=== PATIENT | female | born 1965 | race Two or more races ===

== ENCOUNTER 2017-06-29 10:16 | Outpatient (CLI) | payer OTHER | END 2017-06-29 10:28 | disposition home or self-care (01) | LOC: SONOGRAMA 10:16 | DX: N60.11 Diffuse cystic mastopathy of right breast (principal); N60.12 Diffuse cystic mastopathy of left breast; Z12.31 Encounter for screening mammogram for malignant neoplasm of breast ==

== ENCOUNTER 2017-10-05 07:59 | Outpatient (CLI) | payer OTHER | END 2017-10-05 08:10 | disposition home or self-care (01) | LOC: LAB 07:59 | DX: D50.8 Other iron deficiency anemias (principal); E03.8 Other specified hypothyroidism; E78.3 Hyperchylomicronemia ==